=== PATIENT | male | born 1950 | race Caucasian/White ===

== ENCOUNTER 2016-05-06 16:48 | Emergency (ER) | payer OTHER ==
[~2016-05-06 16:48] MED LIST: ALLEGRA180 PO; AMB10 PO; ASAB PO; CEFT2 PO; CIALIS5 MG PO; CYANO1000T PO; DSS PO; DURAFLEX PO; GLUCOSAMINEPO PO; HYDROCHLOROT12.5 MG PO; KDUR10 PO; L40 PO; LOP50 PO; LORTAB 5 PO; MAGONATE PO; MAVIK4 MG PO; MAX25 PO; MIRAPEX250 PO; NORCO1 TA1 PO; PRAVAC PO; PRILOSEC40 MG PO; PROBIOTIC PO; PROSCAR5 PO; STOOL SOFTEN240 MG PO; TOPXL50 PO; ULORIC80 MG PO; ULTRAM50 PO; UROXATRAL PO; URSO FORTE500 MG PO; VOLT75 PO; Z100 PO; Z300 PO; ZOFRAN4 PO; ZYRTEC ALLGY10 MG PO; ZYRTEC CHIL1 PO
[2016-05-06 18:07] LABS: BASOPHILS 0.6 %; BASOPHILS ABSOLUTE 0.02 10/3/uL (0.0-0.16); EOSINOPHILS 7.1 %; EOSINOPHILS ABSOLUTE 0.24 10/3/uL (0.0-0.53); HEMOGLOBIN 13.3 g/dL (13.6-17.8); IMMATURE GRANULOCYTES 0.3 %; IMMATURE GRANULOCYTES ABSOLUTE 0.01 10/3/uL (0.0-0.11); LYMPHOCYTES ABSOLUTE 0.54 10/3/uL (0.67-4.30); MEAN CORPUS HGB CONC 36.3 g/dL (32.0-36.0); MEAN CORPUSCULAR HEMOGLOB 32.1 pg (26.0-34.0); MEAN CORPUSCULAR VOLUME 88.4 fL (80-100); MEAN PLATELET VOLUME 8.6 fL (9.2-13.0); MONOCYTES 8.6 %; MONOCYTES ABSOLUTE 0.29 10/3/uL (0.21-1.20); NEUTROPHILS 67.4 %; NEUTROPHILS ABSOLUTE 2.27 10/3/uL (2.02-8.40); RBC DISTRIBUTION WIDTH 13.7 % (12.0-16.0); RED CELL COUNT 4.14 10/6/uL (4.7-6.1)
[2016-05-06 18:08] LABS: ASCORBIC ACID (UR NOT ORDER) NEG (NEG); BILIRUBIN, URINE NEGATIVE (NEG); ER URINALYSIS TAT 0 Hrs 14 Mins; KETONE, URINE NEGATIVE (NEG); LEUKOCYTE ESTERASE(NOT OR NEG (NEG); NITRITE (URINE) NEG (NEG); WBC (NOT ORDERED) (RFLEX) 1 (0-5)
[2016-05-06] MEDS ORDERED: ULORIC80 MG PO (18:10)
[2016-05-06] MEDS ORDERED: NEUR100 PO (18:10)
[2016-05-06] MEDS ORDERED: TRAZ100 PO (18:12)
[2016-05-06 18:21] LABS: ER CBC TAT 0 Hrs 26 Mins; HEMATOCRIT 36.6 % (40.0-51.0); MANUAL DIFF NO %; PLATELET COUNT 176 10/3/uL (150-400); WHITE BLOOD CELLS 3.4 10/3/uL (4.5-10.5)
[2016-05-06 18:22] LABS: BENZODIAZEPINES (NOT ORD) NEG (NEG); PHENCYCLIDINE(PCP) NEG (NEG)
[2016-05-06 18:22] LABS: ALKALINE PHOSPHATASE 61 U/L (45-117); CALCIUM, SERUM 8.9 MG/DL (8.5-10.4); CHLORIDE, SERUM 103 MMOL/L (96-112); CO2 (CARBON DIOXIDE) 27 MMOL/L (24-34); CREATININE 0.93 MG/DL (0.70-1.30); DIRECT BILIRUBIN 0.3 MG/DL (0.0-0.4); GFR AFRICAN AMERICAN 97 ML/MIN (>=60); GFR NON AFRICAN AMERICAN 84 ML/MIN (>=60); POTASSIUM, SERUM 3.5 MMOL/L (3.5-5.3); SGOT(AST) 21 U/L (5-40); SGPT(ALT) 23 U/L (5-65); SODIUM, SERUM 140 MMOL/L (135-148); TOTAL PROTEIN 7.3 G/DL (6.0-8.5)
[2016-05-06 18:23] LABS: AMPHETAMINES (NOT ORD) NEG (NEG); BARBITURATES (NOT ORDERED NEG (NEG); CANNABINOIDS (THC) NEG (NEG); COCAINE (NOT ORDERED) NEG (NEG); OPIATES NEG (NEG); TRICYCLICS NEG (NEG)
[2016-05-06 18:23] LABS: A/G RATIO 1.2 (0.7-1.9); ACETAMINOPHEN LEVEL (TYLENOL) < 2.0 MCG/ML (10.0-20.0); ALCOHOL < 10 MG/DL (0); BUN (BLOOD UREA NITROGEN) 16 MG/DL (6-23); GLOBULIN 3.3 G/DL (2.5-4.1); GLUCOSE, SERUM 114 MG/DL (60-99); INDIRECT BILIRUBIN(NOT ORDER) 0.8 MG/DL (0.1-0.9); SALICYLATE < 1.7 MG/DL (-); TOTAL BILIRUBIN 1.1 MG/DL (0-1.2)
[2016-05-20] MEDS ORDERED: ASAB PO (15:38)
[2016-05-20] MEDS ORDERED: CO Q-10100 MG PO (15:39)
[2016-05-20] MEDS ORDERED: PROBIOTIC PO (15:39)
[2016-05-20] MEDS ORDERED: FERROUS SULF325 M1 PO (15:40)
[2016-05-20] MEDS ORDERED: VITE PO (15:41)
[2016-05-20] MEDS ORDERED: MAXIMUM D3 PO (15:42)
[2016-05-20] MEDS ORDERED: PERI-COLACE1 TAB PO (15:44)
[2016-05-20] MEDS ORDERED: NEUR100 PO (15:46)
== END 2016-05-06 20:20 | disposition home or self-care (01) ==
LOC: ER 16:48
PROVIDERS: Emergency Medicine
DX: F30.9 Manic episode, unspecified (principal); I50.9 Heart failure, unspecified; I48.91 Unspecified atrial fibrillation; E11.9 Type 2 diabetes mellitus without complications; Z85.828 Personal history of other malignant neoplasm of skin; Z88.8 Allergy status to other drugs, medicaments and biological substances; Z88.1 Allergy status to other antibiotic agents; Z79.899 Other long term (current) drug therapy
CPT/HCPCS: 70450; 80053; 80305; 80307; 81001; 82140; 82248; 85025; 99285

== ENCOUNTER 2016-05-22 09:48 | Day surgery (SDC) | payer OTHER ==
--- NOTE | ~2016-05-22 | EGD ---
EGD REPORT [facility] [address] [address] NAME: ABBY MONTANO : [birth year] STATUS : [facility] PAT#: [id number] AGE: 66 ADM/REG DATE : 05/22/16 MR#: [id number] REPORT SERV DATE: 05/22/16 DICTATED BY: UMU GONZALEZ DATE: 05/22/16 REPORT STATUS : Draft [facility]ANS[facility]ED [facility]: [facility] DATE: 05/22/16 Pulmonology Patient Name: Abby Montano Procedure Date: 05/22/2016 9:29 AM Date of : 1950 Attending MD: TRUDY GONZALEZ MD Procedure Date No Time: 05/22/2016 Procedure: EBUS/KAY BRONCH Indications: History of laryngeal carcinoma, new RUL lung lesion Providers: TRUDY GONZALEZ MD Referring MD: CINDI STERN MD Medicines: Lidocaine 2% 20 mL Complications: No immediate complications Procedure: - A History and Physical has been performed. Patient meds and allergies have been reviewed. The risks and benefits of the procedure and the sedation options and risks were discussed with the patient. All questions were answered and informed consent was obtained. Patient identification and proposed procedure were verified prior to the procedure by the physician and the nurse in the procedure room. Mental Status Examination: normal. Respiratory Examination: clear to auscultation. CV Examination: RRR, no murmurs, no S3 or S4. ASA Grade Assessment: IV - A patient with severe systemic disease that is a constant threat to life. After reviewing the risks and benefits, the patient was deemed in satisfactory condition to undergo the procedure. The anesthesia plan was to use general anesthesia. Immediately prior to administration of medications, the patient was re-assessed for adequacy to receive sedatives. The heart rate, respiratory rate, oxygen saturations, blood pressure, adequacy of pulmonary ventilation, and response to care were monitored throughout the procedure. The physical status of the patient was re-assessed after the procedure. The Bronchoscope was introduced through the mouth, via the endotracheal tube (the patient was intubated for the procedure) and advanced to the tracheobronchial tree. The BF [id number] was introduced through the mouth, via the endotracheal tube (the patient was intubated for the procedure) and advanced to the tracheobronchial tree. The procedure was accomplished without difficulty. The patient tolerated the procedure well. Findings: The endotracheal tube is in good position. The visualized portion of the EGD REPORT [address] [address] NAME: ABBY MONTANO : [birth year] STATUS : [facility] [place] PAT#: [id number] AGE: 66 ADM/REG DATE : 05/22/16 MR#: [id number] REPORT SERV DATE: 05/22/16 DICTATED BY: UMU GONZALEZ DATE: 05/22/16 REPORT STATUS : Draft TRANSCRIBED BY: [employer] DATE: 05/22/16 trachea is of normal caliber. The aman is sharp. The tracheobronchial tree was examined to at least the first subsegmental level. Bronchial mucosa and anatomy are normal; there are no endobronchial lesions, and no secretions. EBUS TBNA of lymph node level 11L x 4 passes for cytology EBUS TBNA of lymph node level 7 x 6 passes for cytology EBUS TBNA of lymph node level 4R x 4 passes for cytology EBUS TBNA of lymph node level 11R x 7 passes for cytology Using SuperDimension Edge catheter 180, peripheral probe EBUS 17s, and fluoroscopy, I performed the following biopsies: RUL lung nodule transbronchial needle aspirates x 1 pass for cytology RUL lung nodule transbronchial brush biopsy x 1 pass for cytology Bronchoalveolar lavage was performed in the right upper lobe of the lung and sent for cell count, cytology, bacterial culture, viral smears \T\ culture, and fungal and AFB analysis. 180 mL of fluid were instilled. 30 mL were returned. The return was blood-tinged. Impression: Difficult to Navigate to the lesion due its proximity to blood vessels. Rapid On-Site Evaluation (SEBASTIEN): Preliminary cytology is NEGATIVE for malignancy. Samples were hemorrhagic. (final results are pending). Recommendation: - Await test results. - Chest X-ray. - Follow up with Dr. Cindi Stern - If non diagnostic, consider CT FNA or continued surveillance imaging. Attending Participation: I personally performed the entire procedure. TRUDY GONZALEZ MD 05/22/2016 12:30 PM This report has been signed electronically. Number of Addenda: 0 Note Initiated On: 05/22/2016 9:29 AM [address] [id number]
--- NOTE | ~2016-05-22 | CN ---
Consultation Report [facility] [address] [place]. [address] NAME: ABBY MONTANO : [birth year] STATUS : [facility]#: [id number] AGE: 66 ADM/REG DATE : 05/22/16 MR#: [id number] REPORT SERV DATE: 05/22/16 DICTATED BY: OSCAR GONZALEZ DATE: 05/22/16 REPORT STATUS : Draft TRANSCRIBED BY: MODL DATE: 05/22/16 CONSULTATION DATE OF CONSULTATION: Dear Dr. Vic Stern: Thank you for requesting my opinion regarding evaluation and management of Mr. Abby Montano' small right upper lobe FDG-positive lung nodule. Mr. 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 PET-CT demonstrated no residual or recurrent disease in the cervical lymph nodes, but there was a new FDG-avid right perihilar 6 mm lung nodule, suspicious for metastatic disease or a new primary. Persistent focal increased activity at the margin of the right liver corresponds to surgical clips. The findings may represent artifact. The patient states that he has expected exertional dyspnea, well localized to the chest, nonradiating with no significant alleviating or exacerbating factors. He is a lifelong nonsmoker. REVIEW OF SYSTEMS: A detailed 14-point review of systems was completed. Pertinent positives and negatives are listed above. PAST MEDICAL HISTORY: 1. Hypertension. 2. Gout. 3. Ankylosing spondylitis. 4. Dependent edema. 5. Hyperlipidemia. 6. Squamous cell tonsillar carcinoma, status post radiation therapy as above. PAST SURGICAL HISTORY: Spine surgery for spinal stenosis in 2003 and left quadriceps tendon repair in 2010. SOCIAL HISTORY: The patient does not smoke cigarettes or abuse alcohol. He denies any significant caffeine consumption. He does not use recreational drugs. He has a son who accompanies him today. FAMILY HISTORY: Father required a cardiac bypass surgery. ALLERGIES: NO KNOWN DRUG ALLERGIES. HOME MEDICATIONS: Reviewed and located in the paper chart. Consultation Report [facility] [address] [place]. [address] NAME: ABBY MONTANO : [birth year] STATUS : [facility] PAT#: [id number] AGE: 66 ADM/REG DATE : 05/22/16 MR#: [id number] REPORT SERV DATE: 05/22/16 DICTATED BY: OSCAR GONZALEZ DATE: 05/22/16 REPORT STATUS : Draft TRANSCRIBED BY: FRANSISCO DATE: 05/22/16 PHYSICAL EXAMINATION: VITAL SIGNS: Reviewed and located in the paper chart. GENERAL: No acute distress. Able to communicate in full paragraphs at a time. Significant ankylosing spondylitis kyphosis noted. The patient has difficulty with extension and flexion of the neck. HEENT: Posterior oropharynx is clear. NECK: No JVD. No LAD. Thin neck with very slight radiation changes along the right anterior aspect. CARDIOVASCULAR: Regular rate and rhythm. S1 and S2 present. LUNGS: Clear to auscultation bilaterally. ABDOMEN: Nontender, nondistended, soft. Positive bowel sounds. EXTREMITIES: No clubbing, cyanosis, or edema. SKIN: No new rashes, lesions, or ulcers. PSYCHIATRIC: Alert and oriented x3. Appropriate mood and affect. Appropriate insight and judgment. NEUROLOGIC: 5/5 strength in upper and lower extremities. Cranial nerves 2 through 12 intact. Gait not tested. DTRs not performed. LABORATORY DATA: CBC demonstrates a white count of 3.4, hemoglobin of 13.1, platelet count of 110. Normal coagulation studies. Creatinine of 0.94. PET-CT scan on 05/07/2016 was personally reviewed by me and I agree with the following interpretation. 1. No residual or recurrent disease in the cervical lymph node or oropharynx. 2. New FDG-avid right perihilar 6 mm pulmonary nodule that is suspicious for metastatic disease or a new primary neoplasm. 3. Focal increased activity at the margin of the right liver corresponds to the surgical clips, this may represent artifact. ASSESSMENT AND PLAN: Mr. Abby Montano is an extremely pleasant 66-year-old gentleman with a history of right tonsillar squamous cell carcinoma, status post radiation therapy, and lifelong nonsmoker, who presents with a new right perihilar 6 mm FDG-avid lung nodule. The clinical and radiographic presentation could be consistent with an inflammatory process, a new lung primary, or metastatic disease from his tonsillar cancer. At this point, Mr. Montano has several options, including continued surveillance imaging. However, after discussing the case with Dr. Vic Stern and the patient, Mr. Montano would like to proceed forward with biopsy. A 6 mm lung nodule is FDG avid with a primary, there was significant clinical concern. We discussed in detail potential options for biopsy, including CT-guided needle biopsy and thoracic surgical biopsy. The thoracic surgical biopsy would be extremely difficult given the central nature of the lesion, and CT-guided needle biopsy would also be difficult given its proximity to the large vessels emanating Consultation Report [facility] [address] [facility] [place] [address] NAME: ABBY MONTANO : [birth year] STATUS : [facility] PAT#: [id number] AGE: 66 ADM/REG DATE : 05/22/16 MR#: [id number] REPORT SERV DATE: 05/22/16 DICTATED BY: OSCAR GONZALEZ DATE: 05/22/16 REPORT STATUS : Draft TRANSCRIBED BY: KEOL DATE: 05/22/16 from the right perihilar region. In lieu of those options, the patient may be amenable to EBUS and navigation bronchoscopy, although the diagnostic yield may be limited due to its small size and its position within the airway. Nonetheless, it is reasonable to move forward. The patient is fully aware that the procedure could be potentially nondiagnostic. The patient is aware that the procedure is associated with potential life-threatening risks, including lung collapse, respiratory failure, and even . A summary of my recommendations are as follows: 1. Proceed with EBUS and navigation bronchoscopy. 2. Follow up with Dr. Vic Stern. Thank you for allowing me to participate in Mr. Abby Montano' care. PASTOR/FRANSISCO Oscar Gonzalez M.D. / [id number] CC: Vanessa Wu Jr., M.D.
[~2016-05-22 09:48] MED LIST changes: +CO Q-10100 MG PO; +FERROUS SULF325 M1 PO; +MAXIMUM D3 PO; +NEUR100 PO; +PERI-COLACE1 TAB PO; +TRAZ100 PO; +VITE PO
[2016-05-22 10:11] LABS: BASOPHILS 0.9 %; BASOPHILS ABSOLUTE 0.03 10/3/uL (0.0-0.16); EOSINOPHILS 14.9 %; EOSINOPHILS ABSOLUTE 0.51 10/3/uL (0.0-0.53); HEMATOCRIT 36.2 % (40.0-51.0); HEMOGLOBIN 13.1 g/dL (13.6-17.8); IMMATURE GRANULOCYTES 0.3 %; IMMATURE GRANULOCYTES ABSOLUTE 0.01 10/3/uL (0.0-0.11); LYMPHOCYTES 16.6 %; LYMPHOCYTES ABSOLUTE 0.57 10/3/uL (0.67-4.30); MANUAL DIFF NO %; MEAN CORPUS HGB CONC 36.2 g/dL (32.0-36.0); MEAN CORPUSCULAR HEMOGLOB 32.4 pg (26.0-34.0); MEAN CORPUSCULAR VOLUME 89.6 fL (80-100); MEAN PLATELET VOLUME 8.6 fL (9.2-13.0); MONOCYTES 9.6 %; MONOCYTES ABSOLUTE 0.33 10/3/uL (0.21-1.20); NEUTROPHILS 57.7 %; NEUTROPHILS ABSOLUTE 1.98 10/3/uL (2.02-8.40); PLATELET COUNT 110 10/3/uL (150-400); RBC DISTRIBUTION WIDTH 14.4 % (12.0-16.0); RED CELL COUNT 4.04 10/6/uL (4.7-6.1); WHITE BLOOD CELLS 3.4 10/3/uL (4.5-10.5)
[2016-05-22 10:26] LABS: INTERNATIONAL NORMAL RATI 1.1 UNITS (-); PARTIAL THROMBO TIME 26.9 SEC (22.5-37.2); PROTIME (NOT ORD) 13.8 SEC (12.0-14.5)
[2016-05-22 10:52] LABS: ALBUMIN 3.7 G/DL (3.5-5.0); ALKALINE PHOSPHATASE 71 U/L (45-117); BUN (BLOOD UREA NITROGEN) 19 MG/DL (6-23); CALCIUM, SERUM 8.6 MG/DL (8.5-10.4); CHLORIDE, SERUM 109 MMOL/L (96-112); CO2 (CARBON DIOXIDE) 27 MMOL/L (24-34); CREATININE 0.94 MG/DL (0.70-1.30); DIRECT BILIRUBIN 0.2 MG/DL (0.0-0.4); GFR AFRICAN AMERICAN 96 ML/MIN (>=60); GFR NON AFRICAN AMERICAN 83 ML/MIN (>=60); GLUCOSE, SERUM 110 MG/DL (60-99); INDIRECT BILIRUBIN(NOT ORDER) 0.3 MG/DL (0.1-0.9); POTASSIUM, SERUM 3.8 MMOL/L (3.5-5.3); SGOT(AST) 13 U/L (5-40); SGPT(ALT) 21 U/L (5-65); SODIUM, SERUM 144 MMOL/L (135-148); TOTAL BILIRUBIN 0.5 MG/DL (0-1.2); TOTAL PROTEIN 6.6 G/DL (6.0-8.5)
[2016-05-22 18:25] LABS: BD FL LYMPH (NOT ORD) 30 %; BF BASO (NOT OF) 0 %; BF LARGE MONONUCLEAR 58 %; BODY FLUID EOS (NOT ORD) 0 %; BODY FLUID SEG (NOT ORD) 12 %
[2016-05-22 18:26] LABS: BD FL SOURCE (NOT ORD) RLL; BF TOTAL CELL CT (NOT ORD 155 /MM3; BODY FLUID RBC (NOT ORD) 23000 /MM3
== END 2016-05-22 14:47 | disposition home or self-care (01) ==
LOC: DMU 09:48
PROVIDERS: Anesthesiology; Internal Medicine
PROC: 07974ZX Drainage of Thorax Lymphatic, Percutaneous Endoscopic Approach, Diagnostic (ICD-10-PCS; principal; 2016-05-22 11:00)
PROC: 0B948ZZ Drainage of Right Upper Lobe Bronchus, Via Natural or Artificial Opening Endoscopic (ICD-10-PCS; 2016-05-22 11:00)
PROC: 0B948ZX Drainage of Right Upper Lobe Bronchus, Via Natural or Artificial Opening Endoscopic, Diagnostic (ICD-10-PCS; 2016-05-22 11:00)
DX: R91.8 Other nonspecific abnormal finding of lung field (principal); G25.81 Restless legs syndrome; I11.0 Hypertensive heart disease with heart failure; I50.9 Heart failure, unspecified; E78.00 Pure hypercholesterolemia, unspecified; M47.9 Spondylosis, unspecified; M19.90 Unspecified osteoarthritis, unspecified site; N40.0 Benign prostatic hyperplasia without lower urinary tract symptoms; Z85.21 Personal history of malignant neoplasm of larynx; Z85.818 Personal history of malignant neoplasm of other sites of lip, oral cavity, and pharynx; Z92.3 Personal history of irradiation; Z92.21 Personal history of antineoplastic chemotherapy; Z88.8 Allergy status to other drugs, medicaments and biological substances; Z88.1 Allergy status to other antibiotic agents; Z96.1 Presence of intraocular lens; Z98.41 Cataract extraction status, right eye; Z98.42 Cataract extraction status, left eye; Z98.1 Arthrodesis status; Z79.82 Long term (current) use of aspirin; Z79.899 Other long term (current) drug therapy; Z98.890 Other specified postprocedural states
CPT/HCPCS: 71010; 80048; 80076; 85025; 85610; 85730; 87015; 87070; 87102; 87116; 87205; 88112; 88172; 88173; 88177; 88305; 88333; 89051; 93005; C1725; C1769; J2250; J2370; J2405; J2710; J3010